=== PATIENT | male | born 1955 | race Caucasian/White ===

== ENCOUNTER 2019-03-15 14:50 | Emergency (ER) | payer OTHER ==
--- NOTE | 2019-03-15 15:08 | PDOC ---
History of Present Illness - General Chief Complaint: Nausea/Vomiting Stated Complaint: VOMITING Time Seen by Provider: 03/15/19 15:08 History Source: Patient, [facility] Records Exam Limitations: Other (Schizophrenia history) - History of Present Illness Initial Comments: 03/15/19 15:33 63 year old male with PMH HTN, HLD, schizophrenia BIBA to ED from [facility] for nausea/vomiting x6 days. Per [facility] staff (via telephone call) pt has been intermittently vomiting, non-bilious nonbloody, last vomited today. Pt denied abdominal pain, chest pain, diarrhea, constipation, abdominal distension. Pt stated his last BM was this morning and was normal. Past History - Past Medical History Allergies/Adverse Reactions: Allergies Allergy/AdvReac Type Severity Reaction Status Date / Time Penicillins Allergy Verified 03/15/19 14:58 Home Medications: Ambulatory Orders Ondansetron [Zofran Odt -] 4 mg SL TID #9 od.tablet 03/15/19 COPD: No HTN: Yes Hypercholesterolemia: Yes Psychiatric Problems: Yes (schiophrenia) - Surgical History Abdominal Surgery: Yes (hernia repair) Appendectomy: No - Suicide/Smoking/Psychosocial Hx Smoking History: Former smoker Have you smoked in the past 12 months: No Information on smoking cessation initiated: No Hx Alcohol Use: No Drug/Substance Use Hx: No Review of Systems - Review of Systems Able to Perform ROS?: Yes Comments:: 03/15/19 15:35 General: denied fever, chills, generalized weakness. HEENT: denied sore throat, rhinorrhea, ear pain. Heart: denied chest pain, palpitations, syncope, diaphoresis. Respiratory: denied shortness of breath, cough, sputum production, hemoptysis. Abdomen: admitted to nausea, vomiting. denied abdominal pain, diarrhea, constipation, blood in stool. : denied dysuria, increased urinary frequency, hematuria, urinary incontinence , flank pain. Back: denied back pain. Musculoskeletal: denied joint pain, muscle pain, joint swelling. Neurological: denied headache, dizziness, numbness, tingling, weakness. Skin: denied rash, laceration, abrasion. *Physical Exam - Vital Signs Last Vital Signs Temp Pulse Resp BP Pulse Ox 98.6 F 77 18 114/80 98 03/15/19 14:59 03/15/19 14:59 03/15/19 14:59 03/15/19 14:59 03/15/19 14:59 - Physical Exam Comments: 03/15/19 15:36 Constitutional: Well-nourished, Well-developed, appearing stated age. HEENT: head is normocephalic, atraumatic. EOMI. PERRLA. Neck: supple. Full ROM. Heart: regular rhythm. no murmurs, rubs or gallops. Lungs: clear to auscultation bilaterally. no crackles, rhonchi or wheezing. no stridor. Abdomen: soft, nontender. normal bowel sounds. no rebound, guarding, masses. Extremities: peripheral pulses intact. no lower extremity edema. Neurological: CN 2-12 grossly intact. moves all four extremities. Psych: awake, alert, oriented x3. follows commands. answers questions appropriately. ED Treatment Course - LABORATORY CBC & Chemistry Diagram: 03/15/19 15:12 03/15/19 15:12 Medical Decision Making - Medical Decision Making 03/15/19 15:36 63 year old male with above PMH presented to ED for nausea/vomiting. Initial Vital Signs Temp Pulse Resp BP Pulse Ox 98.6 F 77 18 114/80 98 03/15/19 14:59 03/15/19 14:59 03/15/19 14:59 03/15/19 14:59 03/15/19 14:59 Afebrile. No tachycardia. No tachypnea. No hypotension. No hypoxia on room air. Labs ordered: CBC, CMP, troponin Imaging ordered: none Medications ordered: pepcid, maalox, zofran, normal saline bolus 500 cc EKG performed at 1522: rate 68, regular rhythm, normal axis, normal intervals, RBBB, no acute ST changes. No prior to compare. 03/15/19 16:11 CBC WBC 6.1 K/mm3 (4.0-10.0) 03/15/19 15:12 RBC 3.90 M/mm3 (4.00-5.60) L 03/15/19 15:12 Hgb 12.2 GM/dL (11.7-16.9) 03/15/19 15:12 Hct 36.6 % (35.4-49) 03/15/19 15:12 MCV 93.9 fl (80-96) 03/15/19 15:12 MCH 31.4 pg (25.7-33.7) 03/15/19 15:12 MCHC 33.4 g/dl (32.0-35.9) 03/15/19 15:12 RDW 13.1 % (11.9-15.9) 03/15/19 15:12 Plt Count 219 K/MM3 (134-434) 03/15/19 15:12 MPV 9.1 fl (7.5-11.1) 03/15/19 15:12 Absolute Neuts (auto) 3.8 K/mm3 (1.5-8.0) 03/15/19 15:12 Neutrophils % 62.5 % (42.8-82.8) 03/15/19 15:12 Lymphocytes % 26.1 % (8-40) 03/15/19 15:12 Monocytes % 8.1 % (3.8-10.2) 03/15/19 15:12 Eosinophils % 2.5 % (0-4.5) 03/15/19 15:12 Basophils % 0.8 % (0-2.0) 03/15/19 15:12 Nucleated RBC % 0 % (0-0) 03/15/19 15:12 No leukocytosis. No anemia. 03/15/19 16:18 CMP Sodium 141 mmol/L (136-145) 03/15/19 15:12 Potassium 4.3 mmol/L (3.5-5.1) 03/15/19 15:12 Chloride 107 mmol/L (98-107) 03/15/19 15:12 Carbon Dioxide 29 mmol/L (21-32) 03/15/19 15:12 Anion Gap 5 MMOL/L (8-16) L 03/15/19 15:12 BUN 22.0 mg/dL (7-18) H 03/15/19 15:12 Creatinine 0.8 mg/dL (0.55-1.3) 03/15/19 15:12 Est GFR (CKD-EPI)AfAm 110.96 03/15/19 15:12 Est GFR (CKD-EPI)NonAf 95.74 03/15/19 15:12 Random Glucose 93 mg/dL (74-106) 03/15/19 15:12 Calcium 8.9 mg/dL (8.5-10.1) 03/15/19 15:12 Magnesium 2.4 mg/dL (1.8-2.4) 03/15/19 15:12 Total Bilirubin 0.2 mg/dL (0.2-1) 03/15/19 15:12 AST 16 U/L (15-37) 03/15/19 15:12 ALT 18 U/L (13-61) 03/15/19 15:12 Alkaline Phosphatase 68 U/L (45-117) 03/15/19 15:12 Troponin I < 0.02 ng/ml (0.00-0.05) 03/15/19 15:12 Total Protein 5.9 g/dl (6.4-8.2) L 03/15/19 15:12 Albumin 3.6 g/dl (3.4-5.0) 03/15/19 15:12 No electrolyte abnormalities. No ANN. No transaminitis. Troponin undetectable. 03/15/19 16:15 Pt given PO water challenge. 03/15/19 16:36 Pt tolerated PO water challenge. Given cracker PO challenge. 03/15/19 16:43 Pt tolerated PO challenge. Pt discharged. Discharge medications: Zofran 4mg SL PO TID PRN Nausea *DC/Admit/Observation/Transfer Diagnosis at time of Disposition: Vomiting - Discharge Dispostion Disposition: [facility] Condition at time of disposition: Improved Decision to Admit order: No - Prescriptions Prescriptions: Ondansetron [Zofran Odt -] 4 mg SL TID #9 od.tablet - Referrals Referrals: Julian Chan [Primary Care Provider] - - Patient Instructions Printed Discharge Instructions: DI for Vomiting -- Adult Additional Instructions: You were seen today for vomiting. Your blood work was normal. I have sent a prescription to your pharmacy for Zofran, an anti-nausea medication. Pick it up today and take as advised on label. Eat bland foods for the next 24 hours. Increase your diet as tolerated. Drink lots of gatorade/pedialyte to stay hydrated. Follow up with your primary care doctor within 3 days. Your care is not complete until you follow up. Return to the Emergency Department for increasing pain, chest pain, shortness of breath, fever, vomiting despite Zofran, vomiting blood, lightheadedness like you may pass out, or any other new, worsening or concerning symptoms. - Post Discharge Activity
[2019-03-15] MEDS ORDERED: MAG HYDROX/AL HYDROX/SIMETH 30 ML UNIT-DOSE CUP PO ONE (15:09)
[2019-03-15] MEDS ORDERED: FAMOTIDINE 20 MG/50 ML IVPB 20 MG/50 ML MG IVPB ONE ×2 (15:09→15:18)
[2019-03-15] MEDS ORDERED: SODIUM CHLORIDE 500 ML IV STA (15:09)
[2019-03-15] MEDS ORDERED: ONDANSETRON 4 MG/2 ML VIAL IVPUSH ONE (15:09)
[2019-03-15 15:13] VITALS: BP 114/80; PULSE 77; TEMP 98.6; BMI 18.8
[2019-03-15] MEDS ORDERED: MAG HYDROX/AL HYDROX/SIMETH 30 ML UNIT-DOSE CUP ONE (15:17)
[2019-03-15] MEDS ORDERED: ONDANSETRON 4 MG/2 ML VIAL ONE (15:17)
[2019-03-15 15:46] LABS: BASO % 0.8 % (0-2.0); EOS % 2.5 % (0-4.5); HEMATOCRIT 36.6 % (35.4-49); HEMOGLOBIN 12.2 GM/dL (11.7-16.9); LYMPH % 26.1 % (8-40); MCH 31.4 pg (25.7-33.7); MCHC 33.4 g/dl (32.0-35.9); MEAN CELL VOLUME 93.9 fl (80-96); MEAN PLT VOLUME 9.1 fl (7.5-11.1); MONO % 8.1 % (3.8-10.2); NEUT % 62.5 % (42.8-82.8); RDW 13.1 % (11.9-15.9); WHITE BLOOD COUNT 6.1 K/mm3 (4.0-10.0)
[2019-03-15 15:48] LABS: PLATELET COUNT 219 K/MM3 (134-434)
[2019-03-15 16:14] LABS: ALBUMIN 3.6 g/dl (3.4-5.0); ALK PHOS 68 U/L (45-117); ANION GAP 5 MMOL/L (8-16); BILIRUBIN,TOTAL 0.2 mg/dL (0.2-1); CALCIUM 8.9 mg/dL (8.5-10.1); CHLORIDE 107 mmol/L (98-107); CO2 29 mmol/L (21-32); CREATININE 0.8 mg/dL (0.55-1.3); GLUCOSE,RANDOM 93 mg/dL (74-106); MAGNESIUM 2.4 mg/dL (1.8-2.4); POTASSIUM 4.3 mmol/L (3.5-5.1); SGOT/AST 16 U/L (15-37); SGPT/ALT 18 U/L (13-61); SODIUM 141 mmol/L (136-145); TOT PROT 5.9 g/dl (6.4-8.2)
--- NOTE | 2019-03-15 16:57 | PDOC ---
Documentation entered by Faith Win SCRIBE, acting as scribe for Nav Malone MD. Nav Malone MD: This documentation has been prepared by the scribe, Fiath Win SCRIBE, under my direction and personally reviewed by me in its entirety. I confirm that the documentation accurately reflects all work, treatment, procedures, and medical decision making performed by me. Attending Attestation - Resident Resident Name: SarayMehnaz - ED Attending Attestation I have performed the following: I have examined & evaluated the patient, The case was reviewed & discussed with the resident, I agree w/resident's findings & plan, Exceptions are as noted - HPI HPI: 03/15/19 15:41 The patient is a 63-year-old male [facility], with a past medical history of HTN, HLD, and schizoprenia, who presents to the ED for nausea and vomiting. Patient endorses multiple episodes of NB/NB vomiting after having peanut butter and soy milk, last episode was yesterday. Pt is unclear why he was sent to the ED today as he has not vomited and currently denies abdominal pain, N/V. Upon speaking to staff at the skilled nursing, they state they were not present when the call was made to transfer patient but that "he must have vomited again." Pt denies vomiting today. The patient denies any diarrhea or constipation. Last BM 2 days ago. Passing flatus. Denies any chest pain or shortness of breath. Denies any urinary symptoms. Denies any weakness, dizziness, headache, lightheadedness, or changes in strength or sensation. Allergies: Penicillins - Physicial Exam PE: 03/15/19 15:42 GENERAL: Awake, alert, and fully oriented, in no acute distress. EYES: EOMI, sclera anicteric, conjunctiva clear ENT: Oropharynx clear without exudates. Moist mucosa NECK: Normal ROM, supple, no lymphadenopathy, JVD, or masses LUNGS: Breath sounds equal, clear to auscultation bilaterally. No wheezes, and no crackles HEART: Regular rate and rhythm, normal S1 and S2, no murmurs, rubs or gallops ABDOMEN: Soft, nontender, normoactive bowel sounds. No guarding, no rebound. No masses. No distention. : No CVAT EXTREMITIES: Normal range of motion, no edema. No cords, erythema, or tenderness BACK: No midline spinal tenderness in cervical/thoracic/lumbar region NEUROLOGICAL: Normal speech, cranial nerves intact, equal strength and sensation b/l SKIN: Warm, Dry, normal turgor, no rashes or lesions noted. - Medical Decision Making 03/15/19 16:56 63yo M presents to the ED with resolved abd pain, N/V Pt asymptomatic in ED Vitals wnl Exam wnl with benign abd Labs wnl Pt tolerating PO Pt requests DC back to skilled nursing He is clinically well appearing and stable I discussed the physical exam findings, ancillary test results and final diagnoses with the patient. I answered all of the patient's questions. The patient was satisfied with the care received and felt comfortable with the discharge plan and treatment plan. The patient will call their primary care physician within 24 hours to arrange follow-up and will return to the Emergency Department with any new, persistent or worsening symptoms.
--- NOTE | 2019-03-16 08:51 | EKG ---
Test Reason : Blood Pressure : / mmHG Vent. Rate : 068 BPM Atrial Rate : 068 BPM P-R Int : 156 ms QRS Dur : 126 ms QT Int : 416 ms P-R-T Axes : 065 070 048 degrees QTc Int : 442 ms NORMAL SINUS RHYTHM RIGHT BUNDLE BRANCH BLOCK ABNORMAL ECG NO PREVIOUS ECGS AVAILABLE Confirmed by BECKY PORRAS MD ([id number]) on 03/16/2019 8:51:30 AM Referred By: Confirmed By:BECKY PORRAS MD
== END 2019-03-15 21:02 ==
LOC: JER 14:50
PROC: 3E0337Z Introduction of Electrolytic and Water Balance Substance into Peripheral Vein, Percutaneous Approach (ICD-10-PCS; principal; 2019-03-15)
PROC: 3E033GC Introduction of Other Therapeutic Substance into Peripheral Vein, Percutaneous Approach (ICD-10-PCS; 2019-03-15)
PROC: 3E033GC Introduction of Other Therapeutic Substance into Peripheral Vein, Percutaneous Approach (ICD-10-PCS; 2019-03-15)
DX: R11.2 Nausea with vomiting, unspecified (principal); I10 Essential (primary) hypertension; E78.5 Hyperlipidemia, unspecified; F20.9 Schizophrenia, unspecified
CPT/HCPCS: 36415; 80053; 83735; 84484; 85025; 93005; 93010; 96361; 96365; 96375; 99283-25; J7030

== ENCOUNTER 2020-12-11 14:28 | Emergency (ER) | payer OTHER ==
[2020-12-11 15:48] LABS: BASO % 1.1 % (0-2.0); EOS % 1.1 % (0-4.5); HEMATOCRIT 39.4 % (35.4-49); HEMOGLOBIN 13.5 GM/dL (11.7-16.9); LYMPH % 22.1 % (8-40); MCH 32.5 pg (25.7-33.7); MCHC 34.2 g/dl (32.0-35.9); MEAN PLT VOLUME 9.1 fl (7.5-11.1); MONO % 8.7 % (3.8-10.2); PLATELET COUNT 263 K/MM3 (134-434); RBC 4.14 M/mm3 (4.00-5.60); RDW 14.6 % (11.9-15.9); WHITE BLOOD COUNT 4.8 K/mm3 (4.0-10.0)
[2020-12-11 16:52] LABS: ALBUMIN 3.5 g/dl (3.4-5.0); ALK PHOS 49 U/L (45-117); ANION GAP 4 MMOL/L (8-16); BILIRUBIN,TOTAL 0.3 mg/dL (0.2-1); BLOOD UREA NITROGEN 21.3 mg/dL (7-18); CHLORIDE 108 mmol/L (98-107); CO2 26 mmol/L (21-32); GLUCOSE,RANDOM 96 mg/dL (74-106); SGOT/AST 98 U/L (15-37); SGPT/ALT 26 U/L (13-61); SODIUM 137 mmol/L (136-145); TOT PROT 6.8 g/dl (6.4-8.2)
[2020-12-11 19:22] VITALS: BP 110/68; PULSE 68; TEMP 97
== END 2020-12-11 20:04 | disposition home or self-care (01) ==
LOC: JER 14:28
DX: R53.1 Weakness (principal)
CPT/HCPCS: 36415; 80053; 82550; 82553; 84132; 84443; 84484; 85025; 93005; 93010; 99284-25